=== PATIENT | female | born 1935 | race Caucasian/White ===

== ENCOUNTER 2022-06-09 18:33 | Inpatient (IN) | payer OTHER ==
[~2022-06-09] VITALS: Ht 157.5 cm; Wt 74.4 kg
--- NOTE | 2022-06-09 19:00 | NUR ---
Received pt from PETERSON Rodriguez.
[2022-06-09] MEDS ORDERED: IPRA12.9 INH (19:04)
[2022-06-09] MEDS ORDERED: MAGN296S70 PO (19:04)
[2022-06-09] MEDS ORDERED: POLY30DR OP (19:04)
[2022-06-09] MEDS ORDERED: MV-M1TAB18 PO (19:04)
[2022-06-09] MEDS ORDERED: ASPI81TA31 PO (19:04)
[2022-06-09] MEDS ORDERED: ATOR80TA PO (19:04)
[2022-06-09] MEDS ORDERED: VALS160T2 PO (19:04)
[2022-06-09] MEDS ORDERED: AMLO-212 PO (19:04)
[2022-06-09] MEDS ORDERED: FLUT1BLS12 IH (19:04)
[2022-06-09 19:20] LABS: HEMATOCRIT 39.9 % (31.2-41.9); MEAN CORPUSCULAR HEMOGLOBIN 29.6 uug (24.7-32.8); MEAN CORPUSCULAR VOLUME 91.4 fL (75.5-95.3); PLATELET COUNT (AUTO) 242 K/uL (179-408)
[2022-06-09 19:38] LABS: CARBON DIOXIDE 29 mmol/L (21-32); CHLORIDE 104 mmol/L (98-107); CREATININE 1.7 mg/dL (0.6-1.3); GLUCOSE 119 mg/dL (74-106); POTASSIUM 4.2 mmol/L (3.5-5.1); UREA NITROGEN, BLOOD 33 mg/dL (7-18)
--- NOTE | 2022-06-09 19:41 | NUR ---
Pt arrived [facility] with c/o shortness of breath, no dyspnea noted. Pt placed on 2L of O2 via nasal cannula. O2 therapy well tolerated, O2 sat is 100%. Seen by CHINTAN for MSE.
--- NOTE | 2022-06-09 19:43 | NUR ---
Endorsed to Becca Hopkins RN.
[2022-06-09 19:51] LABS: ALANINE AMINOTRANSFERASE 35 U/L (14-59); ALKALINE PHOSPHATASE 99 U/L (50-136); ASPARTATE AMINOTRANSFERASE 26 U/L (15-37); BILIRUBIN,DIRECT 0.1 mg/dL (0.0-0.2); BILIRUBIN,TOTAL 0.3 mg/dL (0.2-1.0); TOTAL PROTEIN, SERUM 7.6 g/dL (6.4-8.2)
--- NOTE | 2022-06-09 20:30 | NUR ---
repeat EKG done. NSR noted. pt. in bed, eyes closed.
[2022-06-09] MEDS ORDERED: CEFTRIAXONE 1 G in IV DEXTROSE 5% 50 ML IV ONE (22:45)
[2022-06-09] MEDS ORDERED: AZITHROMYCIN IV 500 MG in IV DEXTROSE 5% 250 ML IV ONE (22:45)
[2022-06-09] MEDS ORDERED: ONDANSETRON 4 MG/2 ML VIAL IV ONE (22:45)
[2022-06-09] MEDS ORDERED: MORPHINE SULFATE 2 MG/1 ML DISP.SYRIN IV ONE (22:45)
[2022-06-09] MEDS ORDERED: CEFTAZIDIME 1 G in IV DEXTROSE 5% 50 ML IV ONE (22:45)
[2022-06-09] MEDS ORDERED: CEFTAZIDIME 1 G VIAL ONE (23:08)
[2022-06-09] MEDS ORDERED: DEXAMETHASONE SOD PHOSPHATE 4 MG INJ IV ONE (23:30)
--- NOTE | 2022-06-09 23:44 | NUR ---
Partial dose of morphine given, wasted witnessed by Radha WINKLER
[2022-06-09] MEDS ORDERED: CEFTRIAXONE /D5W 50ML IVPB **ER PYXIS IV ONE (23:56)
--- NOTE | 2022-06-10 00:05 | NUR ---
Pt. transferred to room 3 at this time, VSS at this time, gave all due meds as ordered. and ciera galvan.
--- NOTE | 2022-06-10 00:07 | NUR ---
called for bed. spoke with transfer and pumphouse operator Liz. will call me back
[2022-06-10] MEDS ORDERED: AZITHROMYCIN 500MG/ D5W 250ML IVPB **ER PYXIS ONLY IV ONE (00:17)
[2022-06-10] MEDS ORDERED: ONDANSETRON 4 MG/2 ML VIAL ONE (00:53)
[2022-06-10] MEDS ORDERED: DEXAMETHASONE SOD PHOSPHATE 10 MG INJ ONE (01:06)
--- NOTE | 2022-06-10 01:25 | NUR ---
Endorsed report to PETERSON Jean M/S to RM [phone] tele.
--- NOTE | 2022-06-10 01:26 | NUR ---
[facility]SA swab collected
[2022-06-10 02:40] VITALS: BP 148/69
[2022-06-10 04:00] VITALS: BP 152/63
[2022-06-10] MEDS ORDERED: ACETAMINOPHEN 325 MG TABLET PO PRN (05:15)
[2022-06-10] MEDS ORDERED: ONDANSETRON 4 MG/2 ML VIAL IV PRN (05:15)
[2022-06-10] MEDS ORDERED: ENOXAPARIN SODIUM 40 MG/0.4 ML DISP.SYRIN SQ SCH (05:15)
[2022-06-10] MEDS ORDERED: IPRATROPIUM BROMIDE 0.5 MG/2.5 ML NEBU NEB PRN (06:00)
[2022-06-10 07:03] LABS: HEMATOCRIT 37.1 % (31.2-41.9); MEAN CORPUSCULAR HEMOGLOBIN 29.7 uug (24.7-32.8); MEAN CORPUSCULAR VOLUME 91.2 fL (75.5-95.3); PLATELET COUNT (AUTO) 222 K/uL (179-408)
--- NOTE | 2022-06-10 07:12 | NUR ---
RECEIVED FROM ER A 86Y/O FEMALE WITH A DX OF COVID POSITIVE. PT IS ALERT AND ORIENTED X2 WITH PERIODS OF CONFUSION. PT SKIN ASSESSED NO SIGNS OF BREAKDOWN NOTED. PT HAS IV IN LT FA 22G TOLERATING SALINE LOCK. ADMITTING ORDERS WERE PUT IN BY DR BILLINGSLEY. PT IS ON TELEMONITOR WHICH IS SHOWING NSR IN THE 80'S NO SIGNS OF DISTRESS NOTED WILL ENDORSE TO AM NURSR.
[2022-06-10 07:21] LABS: ALANINE AMINOTRANSFERASE 34 U/L (14-59); ALKALINE PHOSPHATASE 88 U/L (50-136); ASPARTATE AMINOTRANSFERASE 24 U/L (15-37); BILIRUBIN,TOTAL 0.2 mg/dL (0.2-1.0); CARBON DIOXIDE 29 mmol/L (21-32); CHLORIDE 105 mmol/L (98-107); CHOLESTEROL 164 mg/dL (<200); CREATININE 1.5 mg/dL (0.6-1.3); GLUCOSE 158 mg/dL (74-106); HDL CHOLESTEROL 83 mg/dL (40-60); MAGNESIUM 2.3 mg/dL (1.8-2.4); PHOSPHOROUS 4.9 mg/dL (2.5-4.9); POTASSIUM 4.4 mmol/L (3.5-5.1); TOTAL PROTEIN, SERUM 7.2 g/dL (6.4-8.2); TRIGLYCERIDES 43 MG/DL (30-150); UREA NITROGEN, BLOOD 32 mg/dL (7-18)
[2022-06-10] MEDS ORDERED: IPRATROPIUM BROMIDE 0.5 MG/2.5 ML NEBU NEB SCH (07:35)
--- NOTE | 2022-06-10 08:00 | NUR ---
RECEIVED PATIENT IN BED AWAKE AND ORIENTED X3, DENIES PAIN, NO SS OF SOB OR DISTRESS ON 2L NC SATURATING 99-100%. SR ON MONITOR
[2022-06-10] MEDS ORDERED: ENOXAPARIN SODIUM 30 MG/0.3 ML DISP.SYRIN SUBCUT SCH (09:00)
[2022-06-10] MEDS ORDERED: IPRATROPIUM BROMIDE 12.9 GM INHALER INH SCH (09:00)
[2022-06-10] MEDS ORDERED: FLUTICASONE/VILANTEROL 1 EACH BLST.W.DEV INH SCH (09:00)
[2022-06-10] MEDS ORDERED: FLUTICASONE/SALMETEROL 250/50 INHALER IH SCH (09:00)
[2022-06-10] MEDS ORDERED: ASPIRIN 81 MG TAB.CHEW PO SCH (09:00)
[2022-06-10] MEDS ORDERED: AMLODIPINE 5 MG TABLET PO SCH (09:00)
[2022-06-10] MEDS ORDERED: VALSARTAN 160 MG TABLET PO SCH (09:00)
[2022-06-10 09:31] VITALS: BP 144/56
--- NOTE | 2022-06-10 11:30 | NUR ---
SEEN BY DR MINER WITH ORDER FOR DISCHARGE BACK TO [facility]. DIVISION FIELD INSPECTOR AWARE
[2022-06-10] MEDS ORDERED: ATOR40TA PO (13:06)
[2022-06-10] MEDS ORDERED: AZIT250T PO (13:06)
--- NOTE | 2022-06-10 15:40 | NUR ---
PATIENT DISCHARGED TO [facility] VIA AMBULANCE, REPORT GIVEN TO STAFF
[2022-06-10] MEDS ORDERED: ATORVASTATIN 40 MG TABLET PO SCH (21:00)
[2022-06-10] MEDS ORDERED: DEXAMETHASONE SOD PHOSPHATE 4 MG INJ IV SCH (21:00)
[2022-06-10] MEDS ORDERED: AZITHROMYCIN 250 MG TABLET PO SCH (22:00)
== END 2022-06-10 15:39 | DRG 179 ==
LOC: ER 18:37 → TELE3 22:45
PROVIDERS: ADMIT Internal Medicine; ATTEND Internal Medicine
DX: U07.1 COVID-19 (principal); I10 Essential (primary) hypertension; I25.10 Atherosclerotic heart disease of native coronary artery without angina pectoris; F03.90 Unspecified dementia, unspecified severity, without behavioral disturbance, psychotic disturbance, mood disturbance, and anxiety; I27.20 Pulmonary hypertension, unspecified
CPT/HCPCS: 36415; 71045; 83605; 83735; 84100; 84484; 85025; 87040; 93005; A4663; G0378; J0456; J0696; J0713; J1100; J1650; J2270; J2405; J7050

== ENCOUNTER 2024-10-30 14:25 | Emergency (ER) | payer OTHER ==
[~2024-10-30] VITALS: Ht 152.4 cm; Wt 77.1 kg
[~2024-10-30 14:25] MED LIST: AMLO-212 PO; ASPI81TA31 PO; ATOR40TA PO; AZIT250T PO; FLUT1BLS12 IH; IPRA12.9 INH; MAGN296S70 PO; MV-M1TAB18 PO; POLY30DR OP; VALS160T2 PO
[2024-10-30 14:30] VITALS: O2SAT 97
[2024-10-30] MEDS ORDERED: NEOMY/BACITRA/POLYMYXIN B OINT UD PACKET TP ONE (14:42)
[2024-10-30] MEDS: NEOMY/BACITRA/POLYMYXIN B OINT UD PACKET TP ONE (14:43)
== END 2024-10-30 15:14 | disposition home or self-care (01) ==
LOC: ER 14:25
DX: S60.449A External constriction of unspecified finger, initial encounter (principal); E78.5 Hyperlipidemia, unspecified; Z79.51 Long term (current) use of inhaled steroids; Z79.82 Long term (current) use of aspirin; Z79.899 Other long term (current) drug therapy; Z86.16 Personal history of COVID-19; Z88.5 Allergy status to narcotic agent; W49.04XA Ring or other jewelry causing external constriction, initial encounter; Y93.89 Activity, other specified; Y92.89 Other specified places as the place of occurrence of the external cause; Y99.8 Other external cause status
CPT/HCPCS: A4606; A4663